=== PATIENT | female | born 1965 | race Caucasian/White ===

== ENCOUNTER → 2020-12-04 | Outpatient (CLI) | payer OTHER ==
--- NOTE | 2020-12-04 08:20 | XR ---
EXAMINATION TYPE: XR chest 2V DATE OF EXAM: 12/04/2020 COMPARISON: NONE HISTORY: 55 years Female. STUDY INDICATION GIVEN: THE XRAY MUST DEMONSTRATE NO EVIDENCE OF ACTIVE TB . TECHNIQUE: Frontal and lateral chest radiographs IMPRESSION: Clear lungs and pleural spaces. Normal cardiomediastinal silhouette. No acute osseous abnormality. Tiny osseous fragment along the lateral aspect of the right humeral hea d is noted could represent calcific tendinosis.
== END | disposition home or self-care (01) ==
LOC: RADXRMAIN 07:18
PROVIDERS: ATTEND Dermatology MOHS-Micrographic Surgery
DX: Z11.1 Encounter for screening for respiratory tuberculosis (principal)
CPT/HCPCS: 71046